=== PATIENT | female | born 1935 | race Caucasian/White ===

== ENCOUNTER 2017-01-14 12:30 | Inpatient (IN) ==
[2017-01-14] MEDS ORDERED: ONDANSETRON 4 MG/2 ML VIAL IV PRN (12:34)
[2017-01-14] MEDS ORDERED: ACETAMINOPHEN 325 MG TABLET PO PRN (12:34)
[2017-01-14 14:38] LABS: Basophils % 0.5 % (0.0-0.8); Eosinophils # 0.1 10*3/uL (0.0-0.87); Eosinophils % 0.9 % (0.00-10.9); Hematocrit 32.5 VOL% (35.7-47.0); Hemoglobin 10.6 GM/DL (12.0-16.0); Immature Granulocytes % 0.4 %; Immature Granulocytes Absolute 0.03 #; Lymphocytes # 2.3 10*3/uL (1.4-4.0); Lymphocytes % 29.5 % (21.3-54.2); Mean Corpuscular HGB Conc 32.6 GM/DL (32-36); Mean Corpuscular Hemoglobin 28 PG (27-34); Mean Corpuscular Volume 85.1 FL (87-102); Mean Platelet Volume 12.2 FL (9.6-12.0); Monocytes # 0.5 10*3/uL (0.11-0.8); Monocytes % 6.4 % (1.7-12.7); Neutrophils # 4.8 10*3/uL (1.4-7.4); Neutrophils % 62.3 % (38.7-73.9); Platelet Count 186 T/CUMM (130-400); Red Blood Count 3.82 MC/CUMM (3.8-5.5); Red Cell Distribution Width 13.3 % (9.3-17.3); White Blood Count 7.8 T/CUMM (4-12)
[2017-01-14 15:05] LABS: Albumin 3.7 G/DL (3.4-5.0); Bilirubin,Total 0.7 MG/DL (0.2-1.0); Calcium 9.6 MG/DL (8.5-10.1); Osmolality,Calculated 289.1 MOS/KG (273-304); Potassium 4.2 MMOL/L (3.5-5.1); Total Protein 6.8 G/DL (6.4-8.3)
[2017-01-14] MEDS: DEXTROSE 5% NACL 0.9% 1,000 ML IV SCH (15:06)
[2017-01-14 15:13] LABS: Troponin I Only < 0.015 NG/ML (0.00-0.045)
--- NOTE | 2017-01-14 15:43 | EKG Report ---
Stationary ECG Study [facility] Test Date: 01/14/2017 3:41:53 PM Pat Name: ALICE HARRISON Department: Room: 243 Gender: F Shoe Shanker: ELIZABETH : 1935 Requested by: Rubin Lewis Order Number: [id number] Reading MD: KRISTOPHER SHEIKH Intervals [place] Rate: 73 P: 86 TX: 193 QRS: 47 QRSD: 90 T: 80 QT: 363 QTc: 389 Interpretive Statements SINUS RHYTHM WITH OCCASIONAL SUPRAVENTRICULAR PREMATURE COMPLEXES NONSPECIFIC T-WAVE ABNORMALITY Electronically Signed On 01-17-17 17:15:36 CDT by KRISTOPHER SHEIKH [email or web address]
--- NOTE | 2017-01-14 16:42 | Family Practice History&Phys ---
Assessment and Plan (1) Dehydration Status: Acute Assessment and plan: 01/14/2017: IV fluids have been begun. CT scan of the abdomen is been ordered. Stool studies been ordered because of her diarrhea. Current Visit: Yes (2) Chest pain Status: Acute Assessment and plan: 01/14/2017: Cardiac isoenzymes have been ordered. EKG revealed no acute ischemic changes Current Visit: Yes History of Present Illness Chief complaint: Shortness of breath, diarrhea History of present illness: Ms. Villar is a 81 year old female Patient is a 81-year-old white female presenting office on day of admission with history of diarrhea, fever and increasing weakness that began 6 days ago. Patient states she gets winded just walking across the room. She denies any chest pain associated with this but is still having some diarrhea. She is not having any fever, chills or increasing cough. She denies blood or mucus in her stool. Patient has not had any calf tenderness or swelling. Patient was extremely weak in the office and hospitalization was felt to be warranted. Home Medications Medication Instructions Recorded Confirmed Type Atorvastatin [Lipitor] 10 mg PO QOTHER DAY 12/28/15 01/14/17 History Cholecalciferol (Vitamin D3) 2,000 unit PO DAILY 12/28/15 01/14/17 History [Vitamin D3] Irbesartan [Avapro] 300 mg PO DAILY 12/28/15 01/14/17 History Triamterene/Hydrochlorothiazid 1 each PO DAILY 12/28/15 01/14/17 History [Triamterene-Hctz 37.5-25 mg Tb] amLODIPine [Norvasc] 2.5 mg PO DAILY 12/28/15 01/14/17 History Oxybutynin [Ditropan] 10 mg PO DAILY 01/04/16 01/14/17 History Raloxifene [Evista] 60 mg PO DAILY 01/04/16 01/14/17 History Acetaminophen Tab [Tylenol Tab] 650 mg PO Q6H PRN #0 tablet 01/08/16 01/14/17 Rx Multivitamin/Iron/Folic Acid 1 each PO DAILY 01/14/17 01/14/17 History [Centrum Complete Multivit Tab] Tamsulosin [Flomax] 0.4 mg PO DAILY 01/14/17 01/14/17 History Allergies Allergy/AdvReac Type Severity Reaction Status Date / Time Penicillins Allergy Verified 12/28/15 07:27 - Constitutional Constitutional: Present: fever(s), lethargy, malaise, weakness. Absent: chills - EENT Eyes: Absent: blurry vision, loss of vision Ears: Absent: decreased hearing, ear pain Nose, mouth and throat: Absent: dysphagia, nasal congestion, sinus pressure, sore throat - Cardiovascular Cardiovascular: Present: chest pain at rest, dyspnea, dyspnea on exertion. Absent: diaphoresis, orthopnea, palpitations, PND - Respiratory Respiratory: Present: dyspnea, dyspnea on exertion. Absent: cough, wheezing - Gastrointestinal Gastrointestinal: Present: abdominal pain, diarrhea, nausea. Absent: dyspepsia , dysphagia, hematemesis, hematochezia, melena, vomiting - Genitourinary Genitourinary: Absent: hematuria, urinary frequency, urinary hesitancy - Musculoskeletal Musculoskeletal: Absent: arthralgias, back pain - Neurological Neurological: Absent: confusion, focal weakness, numbness, paresthesias - Psychiatric Psychiatric: Absent: anxiety, confusion, depression - Endocrine Endocrine: Present: fatigue. Absent: polydipsia, polyphagia - Hematologic/Lymphatic Hematologic/Lymphatic: Absent: easy bleeding, easy bruising Medical,Surgical,& Family Hx - Medical History Cardio: History of: Hypertension Neurology: No history of: Seizures Respiratory: History of: Asthma Genitourinary: History of: Bladder Problem (surgery January 1996) Gastrointestinal: History of: Diverticulitis/ Diverticulosis, GERD, Hemorrhoids (Surgery March 2015) Hematology: History of: Anemia Reproductive: History of: Ovarian Cysts - Surgical History Abdominal Surgeries: Surgical HX of: Cholecystectomy, Colonoscopy (2015), EGD ( 2015) Reproductive Surgeries: Surgical HX of;: Breast Surgery, Genitourinary Surgery ( gallbladder 1995) - Family History Family History: Reports;: Family Cancer (2 brother had lung cancer), Family Hematology (mother had polycythemia) Denies;: Family Anesthesia Reaction, Family Diabetes, Family Heart Disease, Family Hypertension, Family Psychiatric Problems, Family Stroke, Additional Family History - Social History Smoking Status: Never smoker Frequency of Alcohol Use: None Type of Drug Use: None Exam - Constitutional Vitals: Period Temp Pulse Resp BP Sys/Mckeon Pulse Ox Last 24 Hr 97.4 F 69 18 128/54 98 Exam: General: Objective patient is a well-developed white female in no acute distress. She does appear fatigued but is able to give an excellent history. HEENT: Pupils equal and reactive to light. Patent nares and airway Neck: No meningismus, adenopathy, thyromegaly. There are no auscultated carotid bruits. Cardiovascular: Regular rhythm. No murmurs or gallops Chest: Clear to auscultation without rales rhonchi wheezes. Abdomen: Soft with diffuse minimal tenderness to palpation. No masses, rebound , guarding or tenderness. Neuro: Cranial nerves intact and DTRs and strength symmetric in all extremities. Dermatologic: No evidence of abnormal lesions or masses. Musculoskeletal: There is no joint swelling or tenderness or deformity. Extremities: She has no calf swelling or tenderness Results - Labs CBC & BMP: 01/14/17 14:14 01/14/17 14:16 Lab Results: I have reviewed the past 24 hour labs - EKG EKG results: sinus rhythm (73 bpm.), no acute changes - Diagnostic Findings Procedure: CT Abdomen and Pelvis: report reviewed by me (This study is pending at present.) Quality Measures - Stroke Symptom Onset Unknown: No
--- NOTE | 2017-01-14 17:16 | Ultrasound Report ---
Bilateral lower extremity venous Doppler with sam scale, Spectral Doppler and color-flow analysis performed and interpreted. Indication: Shortness of breath Scanning over both common femoral veins, superficial femoral veins, greater saphenous veins and popliteal veins demonstrates normal compressibility, color flow, and augmentation. Impression: No evidence of DVT seen in either lower extremity. The Ultrasound images were captured and stored. PROCEDURE INTERPRETED AT [facility] DEPARTMENT OF RADIOLOGY Final Report Signed by: Dr. Anjelica Hoff
[2017-01-14 17:17] LABS: Troponin I Only < 0.015 NG/ML (0.00-0.045)
--- NOTE | 2017-01-14 18:50 | XRay Report ---
Single view the chest. Indication: Dyspnea on exertion. Shortness of breath. The heart is enlarged. The pulmonary vasculature is normal. The lung otto are clear. Degenerative changes are noted at the shoulders. Impression: Mild cardiomegaly. PROCEDURE INTERPRETED AT [facility] DEPARTMENT OF RADIOLOGY Final Report Signed by: Dr. Anjelica Hoff
[2017-01-14 18:55] LABS: Apearance,Urine CLEAR (Clear); Bilirubin,Urine Negative (Negative); Blood, Urine Negative (Negative); Glucose,Urine (UA) Negative (Negative); Ketones,Urine Negative (Negative); Mucus,Urine Occasional /LPF (Occasional); Nitrite,Urine Negative (Negative); Protein,Urine Negative; Squamous Epithelial Cell,Urine Occasional /HPF (0-10); Urine Color Straw (Yellow); Urine Specific Gravity 1.005 (1.001-1.035); Urine Urobilinogen < 2.0 EU/DL (0.2-1.0); WBC,Urine 1 /HPF (0-6)
[2017-01-14 20:14] LABS: Troponin I Only 0.016 NG/ML (0.00-0.045)
[2017-01-14] MEDS: ENOXAPARIN 40 MG/0.4 ML SYRINGE SUBCUT SCH (21:46)
[2017-01-14] MEDS: OXYBUTYNIN 5 MG TABLET PO SCH (21:46)
[2017-01-14 22:28] LABS: Troponin I Only 0.019 NG/ML (0.00-0.045)
[2017-01-15] MEDS: DEXTROSE 5% NACL 0.9% 1,000 ML IV SCH ×3 (00:45→16:07)
[2017-01-15 06:44] LABS: Calcium 8.7 MG/DL (8.5-10.1); Osmolality,Calculated 291.7 MOS/KG (273-304)
--- NOTE | 2017-01-15 07:06 | Family Practice Progress Note ---
Family Practice - PN: Subj Interval history: Patient states she is feeling much better this morning and her BUNs down to 25. GFR is 42 and I think she can proceed with her CT scan of the abdomen. She has not had any fever or chills. She did have a bowel movement this morning so we can send it for analysis. She is not seeing any blood in her stool. She states her abdominal pain has also improved a great deal. Patient had negative venous Dopplers. Exam (Progress Note) - Constitutional Vitals: Period Temp Pulse Resp BP Sys/Mckeon Pulse Ox Last 24 Hr 97.4 F-97.8 F 69-72 18-20 117-136/54-67 96-98 Exam: Objective a well-developed pleasant white female no acute distress. Patient's able give an excellent history. Patient states she is feeling much better and certainly looks better than she did yesterday. Cardiovascular: Heart rate is regular without murmurs or gallops. Respiratory: The lungs clear to auscultation bilaterally. Abdomen: Abdomen is soft and nontender to palpation. Results - Labs CBC & BMP: 01/14/17 14:14 01/15/17 04:38 Lab Results: I have reviewed the past 24 hour labs Assessment and Plan (1) Dehydration Status: Acute Assessment and plan: 01/14/2017: IV fluids have been begun. CT scan of the abdomen is been ordered. Stool studies been ordered because of her diarrhea. 01/15/2017: Patient is clinically improved. BUN is down to 25 this morning. Current Visit: Yes (2) Chest pain Status: Acute Assessment and plan: 01/14/2017: Cardiac isoenzymes have been ordered. EKG revealed no acute ischemic changes 01/15/2017: Cardiac isoenzymes are negative. EKG showed no abnormality. Venous Dopplers were negative. Current Visit: Yes Quality Measures - Stroke Symptom Onset Unknown: No
[2017-01-15] MEDS: PANTOPRAZOLE 40 MG VIAL IV SCH (09:34)
[2017-01-15] MEDS: OXYBUTYNIN 5 MG TABLET PO SCH ×2 (10:12→21:49)
[2017-01-15] MEDS: ASPIRIN EC 81 MG TABLET PO SCH (10:12)
[2017-01-15] MEDS: RALOXIFENE 60 MG TABLET PO SCH (10:12)
--- NOTE | 2017-01-15 13:29 | CT Report ---
CT of the abdomen and pelvis with intravenous contrast and oral contrast. Axial images were obtained with sagittal and coronal 2-D reconstructions. Indication: Abdominal pain. Gastroenteritis. 100 cc Omni 350. Axial images were obtained with sagittal and coronal 2-D reconstructions. The heart is enlarged. Mitral calcification is noted. There is scarring present at the lung bases. The liver is normal in size. No focal liver masses are identified. There is mild prominence of the intrahepatic biliary tree. The gallbladder has been removed. The common bile duct has a diameter of 2.3 cm. No intraluminal calcification is noted. There is soft tissue prominence at the ampulla, extending into the lumen of the duodenum, measuring about 12 mm. The pancreas is mostly atrophic, without ductal dilatation. The adrenal glands are normal in size and configuration. There is no splenic enlargement. There is bilateral renal cortical thinning. No hydronephrosis. No nephrolithiasis seen. The ureters are normal in course and caliber. The urinary bladder presents a normal appearance. There is heavy atherosclerotic plaque present within the abdominal aorta. This extends in to the iliac arteries. The gastric contour is normal. The loops of small intestine are not dilated. The terminal ileum and appendix present a normal appearance. Contrast material extends to the cecum. Fecal material is noted to the rectum. Scattered diverticula are present, without evidence of diverticulitis. A uterine fibroid is suggested posteriorly. No ovarian enlargement. There is a prominent scoliosis, with associated degenerative change. There is a grade 1 spondylolisthesis of L4 on L5. Degenerative changes are present within the spinal column. Impression: 1. There is dilatation of the common bile duct at 2.3 cm, which is more prominent than is typical for the postcholecystectomy state. Questionable small area of soft tissue nodularity at the ampulla measuring 12 mm. Endoscopy and ERCP recommended. 2. Bilateral renal cortical atrophy. 3. Suspected uterine fibroid. 4. Heavy atherosclerosis. 5. Enlarged heart. 6. Diverticulosis without findings to suggest diverticulitis. 7. Grade 1 spondylolisthesis of L4 on L5. The CT exam was performed using one or more of the following dose reduction techniques: Automated exposure control, adjustment of the mA and/or kV according to patient size, or use of iterative reconstruction technique. PROCEDURE INTERPRETED AT [facility] DEPARTMENT OF RADIOLOGY Final Report Signed by: Dr. Anjelica Hoff
[2017-01-15 16:47] LABS: PT Patient Result 10.8 SECS; Partial Thromboplastin Time 24.7 SECS (0-40)
[2017-01-15 17:00] LABS: Albumin 3.1 G/DL (3.4-5.0); Bilirubin,Direct 0.1 MG/DL (0.0-0.20); Bilirubin,Indirect 0.3 MG/DL (0.0-1.0); Bilirubin,Total 0.4 MG/DL (0.2-1.0); Total Protein 5.6 G/DL (6.4-8.3)
[2017-01-15] MEDS: ENOXAPARIN 40 MG/0.4 ML SYRINGE SUBCUT SCH (21:49)
--- NOTE | 2017-01-16 06:06 | Family Practice Progress Note ---
Family Practice - PN: Subj Interval history: Patient states she had a decent night but states she did have some cramping abdominal pain last night. CT scan of the abdomen yesterday revealed her to have some thickening in the area of the ampulla of Vater and she may need to ERCP. Dr. Reid has been consulted. She has not had any nausea vomiting states her diarrhea has subsided. All of her stool studies were negative. Her lipase and liver functions were normal yesterday. Exam (Progress Note) - Constitutional Vitals: Period Temp Pulse Resp BP Sys/Mckeon Pulse Ox Last 24 Hr 97.5 F-98.6 F 70-78 18-20 132-147/60-92 93-97 Exam: Objective a well-developed pleasant white female no acute distress. Patient states she is feeling fairly well this morning she is not having any abdominal pain. We discussed her CT findings and I will ask Dr. Reid to see her as well. Cardiovascular: Heart rate is regular without murmurs or gallops. Respiratory: The lungs clear to auscultation bilaterally. Abdomen: Abdomen is soft and nontender to palpation. Results - Labs CBC & BMP: 01/14/17 14:14 01/15/17 04:38 Lab Results: I have reviewed the past 24 hour labs Assessment and Plan (1) Dehydration Status: Acute Assessment and plan: 01/14/2017: IV fluids have been begun. CT scan of the abdomen is been ordered. Stool studies been ordered because of her diarrhea. 01/15/2017: Patient is clinically improved. BUN is down to 25 this morning. 01/16/2017: Patient is clinically improved. Current Visit: Yes (2) Chest pain Status: Acute Assessment and plan: 01/14/2017: Cardiac isoenzymes have been ordered. EKG revealed no acute ischemic changes 01/15/2017: Cardiac isoenzymes are negative. EKG showed no abnormality. Venous Dopplers were negative. 01/16/2017: This has resolved. Current Visit: Yes Quality Measures - Stroke Symptom Onset Unknown: No
[2017-01-16 07:57] VITALS: BP 160/69
[2017-01-16] MEDS ORDERED: ATORVASTATIN 10 MG TABLET PO SCH (09:00)
[2017-01-16] MEDS: OXYBUTYNIN 5 MG TABLET PO SCH (09:57)
[2017-01-16] MEDS: DEXTROSE 5% NACL 0.9% 1,000 ML IV SCH ×2 (09:57)
[2017-01-16] MEDS: PANTOPRAZOLE 40 MG VIAL IV SCH (09:58)
[2017-01-16] MEDS: RALOXIFENE 60 MG TABLET PO SCH (09:58)
[2017-01-16] MEDS: ASPIRIN EC 81 MG TABLET PO SCH (09:58)
--- NOTE | 2017-01-16 10:25 | Gastrointestinal Consult Note ---
<Isela Trevizo - Last Filed: 01/16/17 10:16> Assessment and Plan (1) Abnormal CT of the abdomen Status: Acute Assessment and plan: 01/16-admitted with fatigue and diarrhea illness with negative stool studies. CT of abdomen with findings noted as below. LFTs and lipase unremarkable. Reported 10 pound weight loss over the last week. Generalized complaints of fatigue and weakness at present. Plan an addendum to followed by Dr. Rosenberg. Current Visit: Yes History of Present Illness Chief complaint: Diarrhea, fatigue History of present illness: Ms. Villar is a 81 year old female who was admitted to the hospital 2 days ago with onset of shortness of breath, diarrhea and general fatigue. Patient states that she was in her usual state of health until last Thursday. She and her had been out of town for several days and after eating out Thursday afternoon, she states she had an onset of diarrhea stools. She states she had several loose stools that happened over the next 2 days and just generally did not feel well. She denies any nausea vomiting associated with this. She denies any melena or hematochezia. She states that she took a couple of Imodium on Thursday and Thursday and the diarrhea stopped. She continued to just not feel well therefore Thursday night she presented to an outpatient clinic for evaluation she was given an antibiotic and steroid pack with no specific findings at that time. Patient states she continued to not feel well therefore she presented to see Dr. Phelps on Thursday. She had no further diarrhea since Thursday however had no appetite. She was complaining of some mild shortness of breath and was found to be dehydrated at that time. She also has some complaints of some atypical chest pain with a negative cardiac workup initially. Patient was admitted for further workup at that time. She had a CT of the abdomen with IV and oral contrast on yesterday which showed a dilated common bile duct at 2.3 cm with a postcholecystectomy state and questionable area of soft tissue nodularity at the ampulla measuring 12 mm no other significant findings noted. Her lab work reveals normal lipase levels, and her LFTs are unremarkable. She has had stool studies done as well and they are all negative at this time. She has a prior history of anemia with GI bleeding in the past however H&H is stable at without any reports of bleeding. Her last endoscopy was in December 2015 after admission for anemia with normal EGD findings and only finding of a polyp (tubular adenoma) on her colon scope. She does state that she has lost approximately 10 pounds over the last week due to not being able to eat very much. She states she has had some mild dysphagia which has improved at this time but has had increased reflux, belching and bloating over the last several days as well. Home Medications Medication Instructions Recorded Confirmed Type Atorvastatin [Lipitor] 10 mg PO QOTHER DAY 12/28/15 01/14/17 History Cholecalciferol (Vitamin D3) 2,000 unit PO DAILY 12/28/15 01/14/17 History [Vitamin D3] Irbesartan [Avapro] 300 mg PO DAILY 12/28/15 01/14/17 History amLODIPine [Norvasc] 2.5 mg PO DAILY 12/28/15 01/14/17 History Oxybutynin [Ditropan] 10 mg PO DAILY 01/04/16 01/14/17 History Raloxifene [Evista] 60 mg PO DAILY 01/04/16 01/14/17 History Acetaminophen Tab [Tylenol Tab] 650 mg PO Q6H PRN #0 tablet 01/08/16 01/14/17 Rx Multivitamin/Iron/Folic Acid 1 each PO DAILY 01/14/17 01/14/17 History [Centrum Complete Multivit Tab] Tamsulosin [Flomax] 0.4 mg PO DAILY 01/14/17 01/14/17 History Allergies Allergy/AdvReac Type Severity Reaction Status Date / Time Penicillins Allergy Verified 12/28/15 07:27 Medical,Surgical,& Family Hx - Medical History Cardio: History of: Hypertension Neurology: No history of: Seizures Respiratory: History of: Asthma Genitourinary: History of: Bladder Problem (surgery January 1996) Gastrointestinal: History of: Diverticulitis/ Diverticulosis, GERD, Hemorrhoids (Surgery March 2015) Hematology: History of: Anemia Reproductive: History of: Ovarian Cysts - Surgical History Abdominal Surgeries: Surgical HX of: Cholecystectomy, Colonoscopy (2015), EGD ( 2015) Reproductive Surgeries: Surgical HX of;: Breast Surgery, Genitourinary Surgery ( 1995) - Family History Family History: Reports;: Family Cancer (2 brother had lung cancer), Family Hematology (mother had polycythemia) Denies;: Family Anesthesia Reaction, Family Diabetes, Family Heart Disease, Family Hypertension, Family Psychiatric Problems, Family Stroke, Additional Family History - Social History Smoking Status: Never smoker Frequency of Alcohol Use: None Type of Drug Use: None 12 point system: reviewed and no additional remarkable complaints except as stated - Constitutional Constitutional: Present: as per HPI, fatigue - EENT Eyes: Present: as per HPI Ears: Present: as per HPI Nose, mouth and throat: Present: as per HPI, dysphagia - Cardiovascular Cardiovascular: Present: as per HPI, dyspnea - Respiratory Respiratory: Present: as per HPI - Gastrointestinal Gastrointestinal: Present: as per HPI, diarrhea, dyspepsia, dysphagia, heartburn - Genitourinary Genitourinary: Present: as per HPI - Musculoskeletal Musculoskeletal: Present: as per HPI - Neurological Neurological: Present: as per HPI - Psychiatric Psychiatric: Present: as per HPI - Endocrine Endocrine: Present: as per HPI - Hematologic/Lymphatic Hematologic/Lymphatic: Present: as per HPI Exam - Constitutional Vitals: Period Temp Pulse Resp BP Sys/Mckeon Pulse Ox Last 24 Hr 96.7 F-98.6 F 70-80 18-20 132-160/60-92 93-97 General appearance: normal weight, no acute distress - Head Head exam: Present: normal inspection, normocephalic - Eye Eye exam: Present: other (Lids and conjunctive are unremarkable). Absent: scleral icterus - ENT ENT exam: Present: normal exam, normal oropharynx - Neck Neck exam: Present: normal inspection - Respiratory Respiratory exam: Present: clear to auscultation bilaterally. Absent: rales, rhonchi, wheezes - Cardiovascular Cardiovascular exam: Present: regular rate and rhythm. Absent: diastolic murmur , JVD, systolic murmur - GI/Abdominal GI/Abdominal exam: Present: normal bowel sounds, soft. Absent: ascites, distended, mass, organomegaly, tenderness - Extremities Exam Extremities exam: Present: normal inspection, full ROM - Back Exam Back exam: Present: normal inspection - Neurological Exam Neurological exam: Present: alert, oriented X3 - Psychiatric Psychiatric exam: Present: normal affect, normal mood - Skin Skin exam: Present: normal color, warm, dry Results - Labs CBC & BMP: 01/14/17 14:14 01/15/17 04:38 Lab Results: I have reviewed the past 24 hour labs - Diagnostic Findings Procedure: CT Abdomen and Pelvis: report reviewed by me Quality Measures - Stroke Symptom Onset Unknown: No Specialty Discharge - Follow Up or Referrals Follow up with: Chema Phelps MD [Physician] - 2 Weeks <Schuyler Rosenberg - Last Filed: 01/16/17 13:03> History of Present Illness Chief complaint: 3030 History of present illness: Ms. Villar is a 81 year old female Exam - Constitutional Vitals: Period Temp Pulse Resp BP Sys/Mckeon Pulse Ox Last 24 Hr 96.7 F-98.6 F 71-80 18-20 132-160/60-92 93-95 Results - Labs CBC & BMP: 01/14/17 14:14 01/15/17 04:38
--- NOTE | 2017-01-16 12:52 | Discharge Summary ---
Hospital Course - Hospital Course Hospital Course: Patient 79-year-old white female was in the office on day of admission with persistent diarrhea abdominal pain and profound weakness. Patient was felt to be dehydrated clinically admitted to my service. IV fluid rehydration was begun. 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 Her laboratory studies were unremarkable except for evidence of dehydration. Her liver functions and lipase were all normal. Patient felt much better with IV fluid rehydration and is scheduled to have an ERCP next week. Will discharge her home today for follow-up for her outpatient ERCP. Diagnosis - Discharge Diagnosis (1) Dehydration Status: Acute (2) Chest pain Status: Acute Discharge Plan - Discharge Data Disposition: Disch To Home/Self Care Condition at Discharge: Stable Discharge Diet: advance to your usual diet Activity: resume usual activities as tolerated Hygiene: no restrictions Weight Bearing at Discharge: full weight bearing Contact your physician if you experience:: fever over 101, Nausea/Vomiting - Discharge Medications Continue Atorvastatin [Lipitor] 10 mg PO QOTHER DAY amLODIPine [Norvasc] 2.5 mg PO DAILY Irbesartan [Avapro] 300 mg PO DAILY Cholecalciferol (Vitamin D3) [Vitamin D3] 2,000 unit PO DAILY Raloxifene [Evista] 60 mg PO DAILY Oxybutynin [Ditropan] 10 mg PO DAILY Acetaminophen Tab [Tylenol Tab] 650 mg PO Q6H PRN #0 tablet PRN Reason: Fever > 100.4 Or Headache Multivitamin/Iron/Folic Acid [Centrum Complete Multivit Tab] 1 each PO DAILY Tamsulosin [Flomax] 0.4 mg PO DAILY Discontinued Triamterene/Hydrochlorothiazid [Triamterene-Hctz 37.5-25 mg Tb] 1 each PO DAILY - Follow Up or Referral Follow Up: Chema Phelps MD [Physician] - 2 Weeks - Forms/Instructions Exam - Constitutional Vitals: Period Temp Pulse Resp BP Sys/Mckeon Pulse Ox Last 24 Hr 96.7 F-98.6 F 71-80 18-20 132-160/60-92 93-95 Exam: Objective a well-developed pleasant white female no acute distress. Patient states she is feeling fairly well this morning she is not having any abdominal pain. We discussed her CT findings and I will ask Dr. Reid to see her as well. Cardiovascular: Heart rate is regular without murmurs or gallops. Respiratory: The lungs clear to auscultation bilaterally. Abdomen: Abdomen is soft and nontender to palpation. Discharge Results Procedures and tests throughout hospitalization: Pending Orders 01/14/17 12:37 Occult Blood, Stool Routine Stool Culture Routine 01/14/17 14:15 Blood Culture Stat 01/19/17 11:47 FL fluoroscopy <1hr Routine Comp Blood Count Auto Diff Routine Prothrombin Time INR Routine Labs on day of discharge: Labs from last 24 hours 01/15/17 01/15/17 01/15/17 16:05 16:05 16:05 INR 1.0 PT Patient/Control Mix 10.8 Circ Anticoag PTT 24.7 Total Bilirubin 0.40 Direct Bilirubin 0.100 Indirect Bilirubin 0.3 AST 14 ALT 20 Alkaline Phosphatase 45 Total Protein 5.6 L Albumin 3.1 L Lipase 325.0 Preliminary micro results at discharge 01/15/17 07:51 Stool Culture - Preliminary Stool Gram Negative Rods 01/14/17 14:15 Blood Culture - Preliminary Blood No growth at 1 day 01/14/17 14:16 Blood Culture - Preliminary Blood No growth at 1 day Results noted DS: Provider Date of admission: 01/14/17 12:34 Primary care physician: . No PCP Attending physician on admission: Chema Phelps MD Consults: 01/14/17 12:34 Consult to Case Mgmt/Social Srvs [CONS] Routine Reason for Case Mgmt/Social Srvs: Discharge Planning 01/15/17 15:39 Consult to Physician [CONS] Routine Comment: Consulting Provider: Schuyler Rosenberg Person Notified: NICOLAS Date Notified: 01/16/17 Time Notified: 08:09 Consult Notification Comment: yani will see in the morning 01/16/17 RP Discharging clinician: Chema Phelps MD Expected date of discharge: 01/16/17
[2017-01-16] MEDS ORDERED: LEVOFLOXACIN INJ 500 MG in PREMIX 1 EACH IV ONE (13:00)
[2017-01-17] MEDS ORDERED: LEVOFLOXACIN INJ 250 MG in PREMIX 1 EACH IV SCH (09:00)
== END 2017-01-16 13:45 | disposition home or self-care (01) | DRG 641 ==
LOC: N.2E 12:34
PROVIDERS: ADMIT Family Medicine; ATTEND Family Medicine